=== PATIENT | female | born 2000 | race Two or more races ===

== ENCOUNTER 2020-08-16 02:21 | Emergency (ER) | payer OTHER ==
[~2020-08-16] VITALS: Ht 154.9 cm; Wt 95.7 kg
[2020-08-16] MEDS ORDERED: PRENATAL CAPLE1 EAC1 (02:41)
[2020-08-16] MEDS ORDERED: FOLIC ACID20 MG (02:42)
[2020-08-16] MEDS ORDERED: PRENATAL TABLE1 EAC3 (02:42)
[2020-08-16] MEDS ORDERED: ACETAMINOPHEN650 M2 PO (07:08)
== END 2020-08-16 07:25 | disposition home or self-care (01) ==
LOC: ER 02:21
DX: O20.8 Other hemorrhage in early pregnancy (principal); Z3A.10 10 weeks gestation of pregnancy; Z03.818 Encounter for observation for suspected exposure to other biological agents ruled out

== ENCOUNTER → 2020-08-27 | Outpatient (CLI) | payer OTHER ==
[~2020-08-27] MED LIST: ACETAMINOPHEN650 M2 PO; FOLIC ACID20 MG; PRENATAL CAPLE1 EAC1; PRENATAL TABLE1 EAC3
== END | disposition home or self-care (01) ==
LOC: PRENATAL 11:00
PROVIDERS: ATTEND Obstetrics & Gynecology Maternal & Fetal Medicine
DX: O34.81 Maternal care for other abnormalities of pelvic organs, first trimester (principal); O36.80X1 Pregnancy with inconclusive fetal viability, fetus 1; Z36.89 Encounter for other specified antenatal screening; Z3A.12 12 weeks gestation of pregnancy

== ENCOUNTER 2020-08-30 19:01 | Emergency (ER) | payer OTHER ==
[~2020-08-30] VITALS: Ht 154.9 cm; Wt 93.0 kg
== END 2020-08-30 23:59 | disposition home or self-care (01) ==
LOC: ER 19:01
DX: O26.892 Other specified pregnancy related conditions, second trimester (principal); R11.2 Nausea with vomiting, unspecified; O23.32 Infections of other parts of urinary tract in pregnancy, second trimester; Z03.818 Encounter for observation for suspected exposure to other biological agents ruled out; Z3A.18 18 weeks gestation of pregnancy

== ENCOUNTER → 2020-10-27 | Outpatient (CLI) | payer OTHER ==
[~2020-10-27] MED LIST changes: +IRON236 MG
== END | disposition home or self-care (01) ==
LOC: PRENATAL 15:30
PROVIDERS: ATTEND Obstetrics & Gynecology Maternal & Fetal Medicine
DX: O35.0XX1 Maternal care for (suspected) central nervous system malformation in fetus, fetus 1 (principal); O35.3XX1 Maternal care for (suspected) damage to fetus from viral disease in mother, fetus 1; O98.512 Other viral diseases complicating pregnancy, second trimester; Z36.89 Encounter for other specified antenatal screening; Z3A.20 20 weeks gestation of pregnancy

== ENCOUNTER 2020-11-17 21:43 | Outpatient (CLI) | payer OTHER ==
[~2020-11-17 21:43] MED LIST changes: -IRON236 MG
[2020-11-17] MEDS ORDERED: IRON236 MG (22:33)
== END 2020-11-18 10:41 | disposition home or self-care (01) ==
LOC: OBS/DEL 21:43
PROVIDERS: ATTEND Specialist
DX: O26.892 Other specified pregnancy related conditions, second trimester (principal); Z20.828 Contact with and (suspected) exposure to other viral communicable diseases; Z3A.23 23 weeks gestation of pregnancy

== ENCOUNTER → 2020-12-21 | Outpatient (CLI) | payer OTHER ==
[~2020-12-21] MED LIST changes: +IRON236 MG
== END | disposition home or self-care (01) ==
LOC: PRENATAL 15:56
PROVIDERS: ATTEND Obstetrics & Gynecology Maternal & Fetal Medicine
DX: O26.843 Uterine size-date discrepancy, third trimester (principal); O28.1 Abnormal biochemical finding on antenatal screening of mother; O99.213 Obesity complicating pregnancy, third trimester; Z36.89 Encounter for other specified antenatal screening; Z3A.29 29 weeks gestation of pregnancy

== ENCOUNTER 2021-02-27 16:04 | Inpatient (IN) | payer OTHER ==
[~2021-02-27] VITALS: Ht 154.9 cm; Wt 3.2 kg
[2021-02-27] MEDS ORDERED: ADULT LOW DOSE81 M1 PO (17:15)
[2021-02-27] MEDS ORDERED: VALTREX1000 MG PO (17:17)
== END 2021-03-02 11:30 | disposition home or self-care (01) | DRG 788 ==
LOC: LDR 16:04 → OB/GYN 16:04
PROVIDERS: ADMIT Specialist; ATTEND Specialist
PROC: 4A1HXFZ Monitoring of Products of Conception, Cardiac Rhythm, External Approach (ICD-10-PCS; 2021-02-27)
PROC: 10D00Z1 Extraction of Products of Conception, Low, Open Approach (ICD-10-PCS; principal; 2021-02-27 17:00)
DX: O13.4 Gestational [pregnancy-induced] hypertension without significant proteinuria, complicating childbirth (principal); O99.02 Anemia complicating childbirth; D57.3 Sickle-cell trait; Z37.0 Single live birth; Z3A.37 37 weeks gestation of pregnancy; Z20.822 Contact with and (suspected) exposure to COVID-19